=== PATIENT | female | born 1955 | race Two or more races ===

== ENCOUNTER 2018-09-15 09:39 | Emergency (ER) | payer OTHER ==
[2018-09-15 09:45] VITALS: BMI 25.8
[2018-09-15] MEDS ORDERED: DICYCLOMINE HCL 10 MG CAPSULE PO ONE (10:30)
--- NOTE | 2018-09-15 10:31 | PDOC ---
History of Present Illness - General Chief Complaint: Pain, Acute Stated Complaint: ABD PAIN Time Seen by Provider: 09/15/18 10:28 History Source: Patient Exam Limitations: No Limitations - History of Present Illness Travel History: No Initial Comments: 09/15/18 10:44 Ms Muro is a 62 yo F with a h/o HTN, HLD She presents to the ER with a complaint of abdominal gas pain Pt reports she has had these symptoms since last night at approximately 8pm after eating grapes, banana and apple No fevers or chills No vomiting No diarrhea No ill contacts No recent travel No undercooked meat, shellfish PMH: HTN, HLD PSH: myomectomy Meds: ALL: NKDA Social: denies alcohol, drug, cigarette use ROS: GENERAL/CONSTITUTIONAL: No: fever, chills, weakness, loss of appetite. HEAD, EYES, EARS, NOSE AND THROAT: No: change in vision, ear pain, discharge, sore throat, throat swelling. CARDIOVASCULAR: No: chest pain, lightheadedness, palpitations, syncope RESPIRATORY: No: cough, shortness of breath, wheezing, hemoptysis, stridor. GASTROINTESTINAL: Yes: abdominal pain No: nausea, vomiting, diarrhea, abdominal cramping GENITOURINARY: No: dysuria, hematuria, frequency, urgency, flank pain. MUSCULOSKELETAL: No: back pain, neck pain, joint pain, muscle swelling or pain SKIN: No: lesions, pallor, rash or easy bruising. NEUROLOGIC: No: headache, vertigo, paresthesias, weakness ENDOCRINE: No: unexplained weight gain or loss HEMATOLOGIC/LYMPHATIC: No: anemia, easy bleeding, swelling nodes. PE: GENERAL: The patient is in no acute distress, Awake and alert, Answering questions appropriately. HEAD: Normal EYES: PERRLA, EOMI, sclera anicteric, conjunctiva clear. ENT: Ears normal, nares patent, oropharynx clear without exudates. Moist mucous membranes. NECK: Normal range of motion, supple, JVD, or masses. LUNGS: Breath sounds equal, clear to auscultation bilaterally. No wheezes, and no crackles. HEART:Regular rate and rhythm, normal S1 and S2 without murmur, rub or gallop. ABDOMEN: Soft, nontender, normoactive bowel sounds. No guarding, no rebound. EXTREMITIES: Normal range of motion, no edema. No clubbing or cyanosis. No erythema, or tenderness. NEUROLOGICAL: Cranial nerves II through XII grossly intact. Normal speech. No focal neurological deficits. MUSCULOSKELETAL: Back non-tender to palpation SKIN: Warm, Dry, normal turgor, no rashes or lesions noted. Past History - Past Medical History Allergies/Adverse Reactions: Allergies Allergy/AdvReac Type Severity Reaction Status Date / Time No Known Allergies Allergy Verified 09/15/18 09:43 Home Medications: Ambulatory Orders Amlodipine Besylate [Norvasc -] 5 mg PO DAILY 09/15/18 Clopidogrel Bisulfate [Plavix] 75 mg PO DAILY 09/15/18 Dicyclomine HCl [Bentyl -] 10 mg PO BID PRN #10 capsule 09/15/18 Simethicone [Gas Relief] 80 mg PO BID PRN #20 tab.chew 09/15/18 Simvastatin [Zocor] 10 mg PO HS 09/15/18 CVA: Yes COPD: No Diabetes: Yes - Immunization History Immunization Up to Date: Yes - Suicide/Smoking/Psychosocial Hx Smoking History: Never smoked Hx Alcohol Use: No Drug/Substance Use Hx: No *Physical Exam - Vital Signs Last Vital Signs Temp Pulse Resp BP Pulse Ox 98.2 F 83 18 134/78 97 09/15/18 09:43 09/15/18 09:43 09/15/18 09:43 09/15/18 09:43 09/15/18 09:43 Moderate Sedation - Procedure Monitoring Vital Signs: Procedure Monitoring Vital Signs Temperature 98.2 F 09/15/18 09:43 Pulse Rate 83 09/15/18 09:43 Respiratory Rate 18 09/15/18 09:43 Blood Pressure 134/78 09/15/18 09:43 O2 Sat by Pulse Oximetry (%) 97 09/15/18 09:43 ED Treatment Course - LABORATORY CBC & Chemistry Diagram: 09/15/18 10:30 09/15/18 10:30 Medical Decision Making - Medical Decision Making 09/15/18 12:20 Twelve-lead EKG was performed and reviewed by me. There is normal sinus rhythm with a normal rate of 67 bpm. The axis is normal. The intervals are normal. There are no ST or T wave abnormalities. Impression: Normal twelve-lead EKG Laboratory Tests 09/15/18 09/15/18 09/15/18 10:30 10:30 10:30 WBC 6.8 Hgb 14.0 Hct 43.5 Plt Count 194 Absolute Neuts (auto) 4.9 Neutrophils % 72.7 Lymphocytes % 18.1 BUN 12 Creatinine 0.7 Creatine Kinase 150 Creatine Kinase Index 0.6 CK-MB (CK-2) < 1.0 Troponin I < 0.02 Lipase 220 Urine Blood Negative Urine Nitrite Negative Ur Leukocyte Esterase Negative Labs WNL Xray demonstrates no air fluid levels Will plan to discharge to home Pt encouraged to have simethicone/bentyl if needed for gas pain Will as pt to return to the ER for any pain/tenderness, fever, vomiting, intractable nausea 09/15/18 13:45 Xray read as several air fluid levels that could be consistent with early partial SBO Pt states she has no abdominal pain She has been passing gas No nausea, no vomiting No abdominal distention Pt clinically does not seem to be SBO Pt initially unwilling to have CT done She requests something to eat She is tolerating po Pt counselled to come back to the ER for abdominal pain, nausea, vomiting, inability to tolerate foods or liquids ,fevers If this is the case, she will need to have CT clinical impression: abdominal pain, initial presentation 09/15/18 15:52 *DC/Admit/Observation/Transfer Diagnosis at time of Disposition: Abdominal pain Qualifiers: Abdominal location: unspecified location Qualified Code(s): R10.9 - Unspecified abdominal pain - Discharge Dispostion Disposition: HOME Condition at time of disposition: Stable Decision to Admit order: No - Prescriptions Prescriptions: Dicyclomine HCl [Bentyl -] 10 mg PO BID PRN #10 capsule PRN Reason: abdominal pain Simethicone [Gas Relief] 80 mg PO BID PRN #20 tab.chew PRN Reason: gas pain - Referrals Referrals: Carolee Urias MD [Primary Care Provider] - - Patient Instructions Printed Discharge Instructions: Avoiding Gas-producing Foods, DI for Abdominal Pain-Adult Additional Instructions: Ms Bhaskar Rm Thank you for coming in to the ER today Please be sure to follow up with your primary care physician with in 1 wee You can drink teas and soups to help with your gas If that doesn't help, please take the medication prescribed Please return to the ER for fevers, chills, nausea, vomiting, in ability to tolerate foods and liquids - Post Discharge Activity
[2018-09-15] MEDS ORDERED: SIMETHICONE 80 MG TAB.CHEW (FP) PO ONE (10:42)
[2018-09-15] MEDS ORDERED: SODIUM CHLORIDE 1,000 ML IV STA (10:42)
[2018-09-15] MEDS: SODIUM CHLORIDE 1,000 ML IV STA ×2 (10:48→10:50)
[2018-09-15] MEDS ORDERED: DICYCLOMINE HCL 10 MG CAPSULE ONE (10:52)
[2018-09-15 11:05] LABS: URINE APPEARANCE CLEAR; URINE BILIRUBIN NEGATIVE (<2.0 mg/dL); URINE COLOR STRAW; URINE GLUCOSE (UA) NEGATIVE (NEGATIVE); URINE KETONE NEGATIVE (NEGATIVE); URINE LEUK ESTERASE NEGATIVE (NEGATIVE); URINE NITRITE NEGATIVE (NEGATIVE); URINE PROTEIN NEGATIVE (NEGATIVE); URINE UROBILINOGEN NEGATIVE mg/dL (0.2-1.0)
[2018-09-15 11:06] LABS: BASO % 0.5 % (0-2.0); EOS % 1.4 % (0-4.5); HEMATOCRIT 43.5 % (32.4-45.2); LYMPH % 18.1 % (8-40); MCH 28.4 pg (25.7-33.7); MCHC 32.2 g/dl (32.0-36.0); MEAN CELL VOLUME 88.1 fl (80-96); MEAN PLT VOLUME 8.6 fl (7.5-11.1); MONO % 7.3 % (3.8-10.2); NEUT % 72.7 % (42.8-82.8); PLATELET COUNT 194 K/MM3 (134-434); RBC 4.93 M/mm3 (3.60-5.2); RDW 12.2 % (11.6-15.6); WHITE BLOOD COUNT 6.8 K/mm3 (4.0-10.0)
[2018-09-15 11:30] LABS: INR 0.99 (0.83-1.09); PROTHROMBIN TIME (PATIENT) 11.7 SEC (9.7-13.0)
[2018-09-15 11:51] LABS: ALK PHOS 84 U/L (45-117); AMYLASE 95 U/L (25-115); ANION GAP 5 MMOL/L (8-16); BILIRUBIN,TOTAL 0.5 mg/dL (0.2-1); BLOOD UREA NITROGEN 12 mg/dL (7-18); CALCIUM 8.9 mg/dL (8.5-10.1); CHLORIDE 104 mmol/L (98-107); CO2 28 mmol/L (21-32); CREATININE 0.7 mg/dL (0.55-1.3); GLUCOSE,RANDOM 101 mg/dL (74-106); LIPASE 220 U/L (73-393); POTASSIUM 4.6 mmol/L (3.5-5.1); SGOT/AST 26 U/L (15-37); SGPT/ALT 41 U/L (13-61); SODIUM 137 mmol/L (136-145); TOT PROT 7.7 g/dl (6.4-8.2)
[2018-09-15 14:09] VITALS: BP 136/77; PULSE 72; TEMP 98.3
--- NOTE | 2018-09-16 16:53 | EKG ---
Test Reason : Blood Pressure : / mmHG Vent. Rate : 067 BPM Atrial Rate : 067 BPM P-R Int : 136 ms QRS Dur : 086 ms QT Int : 404 ms P-R-T Axes : 035 022 017 degrees QTc Int : 426 ms NORMAL SINUS RHYTHM NORMAL ECG NO PREVIOUS ECGS AVAILABLE Confirmed by MD ULYSSES, EDMOND ([id number]) on 09/16/2018 4:53:15 PM Referred By: Confirmed By:EDMOND ARORA MD
== END 2018-09-15 14:00 | disposition home or self-care (01) ==
LOC: JER 09:39
PROC: 3E0337Z Introduction of Electrolytic and Water Balance Substance into Peripheral Vein, Percutaneous Approach (ICD-10-PCS; principal; 2018-09-15)
DX: R10.9 Unspecified abdominal pain (principal); R14.1 Gas pain; I10 Essential (primary) hypertension; E78.00 Pure hypercholesterolemia, unspecified
CPT/HCPCS: 36415; 74019-TC-FY; 80053; 81003; 82150; 82550; 82553; 83605; 83690; 84484; 85025; 85610; 87086; 93005; 93010; 96360; 96361; 99284-25; J7030